=== PATIENT | male | born 1965 | race Caucasian/White ===

== ENCOUNTER 2019-11-10 06:00 | Day surgery (SDC) | payer BC, SELFPAY ==
[~2019-11-10] VITALS: Ht 175.3 cm; Wt 86.2 kg
[2019-11-10] MEDS ORDERED: SUGAMMADEX SODIUM 200 MG/2 ML VIAL IV ONE (07:22)
[2019-11-10] MEDS ORDERED: GLYCOPYRROLATE 0.2 MG/ML VIAL IJ ONE (07:22)
[2019-11-10] MEDS ORDERED: LIDOCAINE/EPI 1% 1:100000 20 ML VIAL INJ ONE (07:22)
[2019-11-10] MEDS ORDERED: fentaNYL CITRATE 250 MCG/5 ML AMP IV ONE (07:22)
[2019-11-10] MEDS ORDERED: LR 1,000 ML IV.SOLN IV ONE (07:22)
[2019-11-10] MEDS ORDERED: WATER FOR IRRIGATION,STERILE 1,000 ML IRRIG.SOLN IR ONE (07:22)
[2019-11-10] MEDS ORDERED: DEXAMETHASONE SOD PHOSPHATE 4 MG/ML VIAL IVP ONE (07:22)
[2019-11-10] MEDS ORDERED: KETOROLAC TROMETHAMINE 30 MG VIAL IVP ONE (07:22)
[2019-11-10] MEDS ORDERED: NS 1000 ML IV.SOLN IV ONE (07:22)
[2019-11-10] MEDS ORDERED: PROPOFOL 200MG/ 20ML VIAL (DIPRIVAN) IV ONE (07:22)
[2019-11-10] MEDS ORDERED: MUPIROCIN 2% TOPICAL OINTMENT 22 GM TP ONE (07:22)
[2019-11-10] MEDS ORDERED: EPINEPHrine JECT 0.1 MG/ML SYR IVP ONE (07:22)
[2019-11-10] MEDS ORDERED: NS IRRIG SOLN 1000 ML IR ONE (07:22)
[2019-11-10] MEDS ORDERED: ISOFLURANE 15 MIN GAS INH ONE (07:22)
[2019-11-10] MEDS ORDERED: MIDAZOLAM HCL 5 MG/5 ML VIAL IVP ONE (07:22)
[2019-11-10] MEDS ORDERED: OXYMETAZOLINE HCL 0.05% NASAL SPRAY NS ONE (07:22)
[2019-11-10] MEDS ORDERED: ROCURONIUM BROMIDE 10 MG/ML (ZEMURON) IV ONE (07:22)
[2019-11-10] MEDS ORDERED: METOCLOPRAMIDE HCL 10 MG/2 ML VIAL IVP PRN (08:15)
[2019-11-10] MEDS ORDERED: ONDANSETRON HCL 4 MG/2 ML VIAL IVP PRN (08:15)
[2019-11-10] MEDS ORDERED: MEPERIDINE HCL/PF 25 MG/ML DISP.SYRIN IVP PRN (08:15)
[2019-11-10] MEDS ORDERED: HYDROmorphone 1 MG INJ. 1 MG/ML AMPUL IVP PRN ×2 (08:15)
[2019-11-10] MEDS ORDERED: MIDAZOLAM HCL 2 MG/2 ML VIAL (VERSED) IVP PRN (08:15)
[2019-11-10] MEDS ORDERED: hydrALAZINE HCL 20 MG/ML VIAL IVP PRN (08:15)
[2019-11-10] MEDS ORDERED: LR 1,000 ML IV SCH (08:15)
[2019-11-10 13:50] VITALS: BP_SYST 150
== END 2019-11-10 13:10 | disposition home or self-care (01) ==
LOC: SMU 06:00 → SDS 06:00
PROVIDERS: ATTEND Otolaryngology
DX: J34.89 Other specified disorders of nose and nasal sinuses (principal); J32.9 Chronic sinusitis, unspecified; D38.5 Neoplasm of uncertain behavior of other respiratory organs; J34.2 Deviated nasal septum; J30.1 Allergic rhinitis due to pollen; H68.101 Unspecified obstruction of Eustachian tube, right ear; G47.33 Obstructive sleep apnea (adult) (pediatric); J34.3 Hypertrophy of nasal turbinates; R09.81 Nasal congestion; Z20.828 Contact with and (suspected) exposure to other viral communicable diseases
CPT/HCPCS: 30140; 30520; 31255; 31256; 31296; 88305; 88311; C1726; C9399; J0171; J1100; J1885; J2250; J2704; J3010; J3490; J7030; J7120; U0003